=== PATIENT | female | born 1955 | race Caucasian/White ===

== ENCOUNTER 2017-09-02 08:30 | Emergency (ER) | payer OTHER ==
[~2017-09-02] VITALS: Ht 165.1 cm; Wt 99.8 kg
[~2017-09-02 08:30] MED LIST: ORPH100T PO
[2017-09-02] MEDS ORDERED: LISINOPRIL20 MG PO (08:54)
[2017-09-02] MEDS ORDERED: METFORMIN HCL1000 M2 PO (08:54)
[2017-09-02] MEDS ORDERED: TOPROL XL25 MG PO (08:55)
[2017-09-02] MEDS ORDERED: ZOCOR40 MG (09:47)
== END 2017-09-02 13:41 | disposition home or self-care (01) ==
LOC: ER 08:30
DX: K29.70 Gastritis, unspecified, without bleeding (principal); D64.9 Anemia, unspecified; R42 Dizziness and giddiness

== ENCOUNTER 2018-06-09 12:46 | Emergency (ER) | payer OTHER ==
[~2018-06-09] VITALS: Ht 165.1 cm; Wt 97.5 kg
[~2018-06-09 12:46] MED LIST changes: +LISINOPRIL20 MG PO; +METFORMIN HCL1000 M2 PO; +TOPROL XL25 MG PO; +ZOCOR40 MG
[2018-06-09] MEDS ORDERED: AMARYL (13:00)
[2018-06-09] MEDS ORDERED: NORVASC5 MG (13:00)
== END 2018-06-09 18:19 | disposition home or self-care (01) ==
LOC: ER 12:46
DX: M54.5 Low back pain (principal); D64.9 Anemia, unspecified

== ENCOUNTER 2022-08-08 10:45 | Emergency (ER) | payer OTHER ==
[~2022-08-08] VITALS: Ht 165.1 cm; Wt 96.6 kg
[~2022-08-08 10:45] MED LIST changes: +AMARYL; +NORVASC5 MG
[2022-08-08] MEDS ORDERED: JARDIANCE25 MG PO (10:56)
[2022-08-08] MEDS ORDERED: DIABETIC SILTU118 M1 PO (13:42)
== END 2022-08-08 14:24 | disposition home or self-care (01) ==
LOC: ER 10:45
DX: B34.9 Viral infection, unspecified (principal); I10 Essential (primary) hypertension; E11.9 Type 2 diabetes mellitus without complications; Z20.822 Contact with and (suspected) exposure to COVID-19; Z88.6 Allergy status to analgesic agent

== ENCOUNTER 2024-07-01 13:21 | Emergency (ER) | payer OTHER ==
[~2024-07-01] VITALS: Ht 165.1 cm; Wt 89.8 kg
[~2024-07-01 13:21] MED LIST changes: +DIABETIC SILTU118 M1 PO; +JARDIANCE25 MG PO
[2024-07-01] MEDS ORDERED: GUAIFENESIN 200 MG/10 ML BLIST.PACK PO STA (15:21)
[2024-07-01] MEDS ORDERED: CEFTRIAXONE SODIUM 1,000 MG VIAL IM STA (15:21)
[2024-07-01 15:44] LABS: HEMATOCRIT 38.9 % (36.0-45.00); MEAN CORPUSCULAR HEMOGLOBIN 27.7 pg (27.00-32.0); MEAN CORPUSCULAR HGB CONC 33.4 g/dl (32.0-36.0); PLATELET COUNT 300 K/uL (150-450); RED BLOOD COUNT 4.69 M/uL (4.00-6.00); RED CELL DISTRIBUTION WIDTH 14.9 % (11.5-14.5)
[2024-07-01] MEDS ORDERED: LEVALBUTEROL HCL 1.25 MG/3 ML SOLUTION IH SCH (15:45)
== END 2024-07-01 19:42 | disposition home or self-care (01) ==
LOC: ER 13:23
PROVIDERS: General Practice
DX: R05.8 Other specified cough (principal); Z88.6 Allergy status to analgesic agent; Z20.822 Contact with and (suspected) exposure to COVID-19
CPT/HCPCS: 36415; 71046; 94640; 96372; 99284; J0696